=== PATIENT | male | born 1980 ===

== ENCOUNTER 2019-03-30 11:00 | Emergency (ER) | payer SELFPAY ==
[2019-03-30 11:55] VITALS: BP 131/83
--- NOTE | 2019-03-30 13:21 | Emergency Department Report ---
ED Abdominal Pain HPI - General Chief Complaint: Abdominal Pain Stated Complaint: ABD PAIN/LOWER BACK PAIN Time Seen by Provider: 03/30/19 11:59 Source: patient Mode of arrival: Ambulatory Limitations: No Limitations - History of Present Illness Initial Comments: 38-year-old male with no past medical surgical history presents to the hospital complaining of abdominal pain past 3 days. Pain is in the lower abdomen. He suffers from constipation and states he has to strain to have a bowel movement. He complains of irritation to the skin on the right buttock perianal area that hurts with a rubbing after bowel movement. He complains of lower abdominal pain with urination without dysuria. No complaints of nausea, vomiting, fever, melena, or hematochezia. Severity scale (0 -10): 1 - Related Data Previous Rx's Medication Instructions Recorded Last Taken Type Ibuprofen [Motrin] 800 mg PO Q8HR PRN #20 tablet 03/30/19 Unknown Rx Polyethylene Glycol 3350 [Miralax] 17 gm PO DAILY PRN #7 powder 03/30/19 Unknown Rx Zinc Oxide [Diaper Rash Ointment] 1 applicatio TP BID #1 bottle 03/30/19 Unknown Rx Allergies Allergy/AdvReac Type Severity Reaction Status Date / Time No Known Allergies Allergy Unverified 03/30/19 11:02 ED Review of Systems ROS: Stated complaint: ABD PAIN/LOWER BACK PAIN Other details as noted in HPI Comment: All other systems reviewed and negative ED Past Medical Hx - Past Medical History Previous Medical History?: No - Surgical History Past Surgical History?: No - Social History Smoking Status: Never Smoker Substance Use Type: None - Medications Home Medications: Home Medications Medication Instructions Recorded Confirmed Last Taken Type Ibuprofen [Motrin] 800 mg PO Q8HR PRN #20 tablet 03/30/19 Unknown Rx Polyethylene Glycol 3350 [Miralax] 17 gm PO DAILY PRN #7 powder 03/30/19 Unknown Rx Zinc Oxide [Diaper Rash Ointment] 1 applicatio TP BID #1 bottle 03/30/19 Unknown Rx ED Physical Exam - General Limitations: No Limitations - Other Other exam information: General: No acute distress Head: Atraumatic Eyes: normal appearance ENT: Moist mucous membranes Neck: Normal appearance, no midline tenderness Chest: Clear to auscultation bilaterally CV: Regular rate and rhythm Abdomen: Soft, normal bowel sounds, suprapubic tenderness, nondistended, no rebound or guarding Back: Normal inspection Extremity: Normal inspection infection, full range of motion Neuro: Alert O x 3, no facial asymmetry, speech clear, no gross motor sensory deficit Psych: Appropriate behavior Skin: Right buttock perianal skin irritation/abrasion without erythema, warmth, fluctuance, or induration. ED Course Vital Signs 03/30/19 03/30/19 11:02 11:49 Temperature 97.9 F 99.1 F Pulse Rate 87 84 Respiratory 17 18 Rate Blood Pressure 134/84 Blood Pressure 131/83 [Right] O2 Sat by Pulse 97 100 Oximetry ED Medical Decision Making - Lab Data Lab Results 03/30/19 Range/Units 12:11 Urine Color Yellow (Yellow) Urine Turbidity Clear (Clear) Urine pH 7.0 (5.0-7.0) Ur Specific [place] 1.015 (1.003-1.030) Urine Protein <15 mg/dl (Negative) mg/dL Urine Glucose (UA) Neg (Negative) mg/dL Urine Ketones Neg (Negative) mg/dL Urine Blood Neg (Negative) Urine Nitrite Neg (Negative) Urine Bilirubin Neg (Negative) Urine Urobilinogen < 2.0 (<2.0) mg/dL Ur Leukocyte Esterase Neg (Negative) Urine WBC (Auto) 1.0 (0.0-6.0) /HPF Urine RBC (Auto) 1.0 (0.0-6.0) /HPF - Medical Decision Making Patient had a symptoms or constipation and will be treated with anastacia and miralax. At this time does not appear to be an abscess with cellulitis. Lulu ent instructed to continue to monitor site for worsening skin changes. 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 - Differential Diagnosis constipation, UTI, cellulitis Critical Care Time: No Critical care attestation.: If time is entered above; I have spent that time in minutes in the direct care of this critically ill patient, excluding procedure time. ED Disposition Clinical Impression: Constipation, Skin abrasion Disposition: [id number] TO HOME OR SELFCARE Is pt being admited?: No Does the pt Need Aspirin: No Condition: Stable Instructions: Constipation (ED), Zinc Oxide (On the skin), Abrasion (ED) Additional Instructions: Take the medication as prescribed. Follow-up with your doctor or doctor/clinic provided. Return if symptoms worsen as indicated by your discharge instructions. Prescriptions: Zinc Oxide [Diaper Rash Ointment] 1 applicatio TP BID #1 bottle Polyethylene Glycol 3350 [Miralax] 17 gm PO DAILY PRN #7 powder PRN Reason: Constipation Ibuprofen [Motrin] 800 mg PO Q8HR PRN #20 tablet PRN Reason: Pain , Severe (7-10) Referrals: MIKE COLIN MD [Staff Physician] - 3-5 Days [facility] [Provider Group] - 3-5 Days Time of Disposition: 13:43 Print Language: YAKUT
[2019-03-30 13:27] LABS: Bilirubin,Urine NEG (Negative); Blood,Urine NEG (Negative); Color,Urine Yellow (Yellow); Protein,Urine <15 mg/dL mg/dL (Negative); Urobilinogen,Urine < 2.0 mg/dL (<2.0)
== END 2019-03-30 13:57 | disposition home or self-care (01) ==
LOC: ED 11:00
DX: S30.810A Abrasion of lower back and pelvis, initial encounter (principal); K59.00 Constipation, unspecified; X58.XXXA Exposure to other specified factors, initial encounter; Y93.89 Activity, other specified; Y92.89 Other specified places as the place of occurrence of the external cause; Y99.8 Other external cause status
CPT/HCPCS: 81001